=== PATIENT | male | born 1985 | race African-American/Black ===

== ENCOUNTER 2019-03-09 23:59 | Emergency (ER) | payer OTHER ==
[~2019-03-09] VITALS: Ht 180.3 cm; Wt 172.4 kg
[2019-03-10 02:41] VITALS: BP 145/74
== END 2019-03-10 02:41 | disposition home or self-care (01) ==
LOC: ER 23:59
DX: M54.2 Cervicalgia (principal); M25.572 Pain in left ankle and joints of left foot; G47.30 Sleep apnea, unspecified; V89.0XXA Person injured in unspecified motor-vehicle accident, nontraffic, initial encounter; Y93.89 Activity, other specified; Y92.410 Unspecified street and highway as the place of occurrence of the external cause; Y99.8 Other external cause status

== ENCOUNTER 2020-02-21 23:20 | Emergency (ER) | payer OTHER ==
[~2020-02-21] VITALS: Ht 180.3 cm; Wt 172.4 kg
== END 2020-02-22 02:31 | disposition left against medical advice (07) ==
LOC: ER 23:20
DX: K08.89 Other specified disorders of teeth and supporting structures (principal); H92.01 Otalgia, right ear; R07.0 Pain in throat; R68.84 Jaw pain; Z53.21 Procedure and treatment not carried out due to patient leaving prior to being seen by health care provider